=== PATIENT | female | born 1955 | race Caucasian/White ===

== ENCOUNTER 2021-11-24 17:25 | Emergency (ER) | payer MEDICARE, MEDICAID ==
[~2021-11-24] VITALS: Ht 170.2 cm; Wt 136.1 kg
[2021-11-24 18:30] LABS: BASOPHILS # (AUTO) 0.1 10^3/uL (0.0-0.1); BASOPHILS % (AUTO) 1 % (0-10); EOSINOPHILS # (AUTO) 0.1 10^3/uL (0.0-0.3); EOSINOPHILS % (AUTO) 1 % (0-10); HEMATOCRIT 43 % (35-52); HEMOGLOBIN 13.4 g/dL (11.5-16.0); LYMPHOCYTES # (AUTO) 4.4 10^3/uL (1.0-4.0); LYMPHOCYTES % (AUTO) 26 % (12-44); MEAN CORPUSCULAR HEMOGLOBIN 29 pg (25-34); MEAN CORPUSCULAR HGB CONC 31 g/dL (32-36); MEAN CORPUSCULAR VOLUME 92 fL (80-99); MEAN PLATELET VOLUME 11.1 fL (9.0-12.2); MONOCYTES # (AUTO) 1.1 10^3/uL (0.0-1.0); MONOCYTES % (AUTO) 6 % (0-12); NEUTROPHILS # (AUTO) 11.4 10^3/uL (1.8-7.8); NEUTROPHILS % (AUTO) 67 % (42-75); PLATELET COUNT 222 10^3/uL (130-400); WHITE BLOOD COUNT 17.1 10^3/uL (4.3-11.0)
--- NOTE | 2021-11-24 18:36 | Diagnostic Imaging Report ---
EXAMINATION: Chest 1 view. HISTORY: Dyspnea. COMPARISON: None available. FINDINGS: Heart size is mildly enlarged with prominence of the pulmonary vasculature. Mild interstitial opacities within the lung bases. No pleural effusion or pneumothorax. The osseous structures are intact. IMPRESSION: 1. Cardiomegaly with findings of pulmonary vascular congestion. 2. Mild interstitial opacities consistent with pulmonary edema, atypical infection or atelectasis. Dictated by: Dictated on workstation # [id number]
--- NOTE | 2021-11-24 18:38 | ED Respiratory ---
General Chief Complaint: Respiratory Problems Stated Complaint: HX COPD/SOB Nursing Triage Note: PT AMB TO [facility] 4 WITH COMPLAINT OF SOA. PT WEARS 3LNC ALL TIME FOR COPD. STATES SHE HAS HAD INCREASING SOA SINCE YESTERDAY. Source: patient History of Present Illness Date Seen by Provider: Nov 24, 2021 Time Seen by Provider: 18:05 Initial Comments PT ARRIVES VIA POV FROM HOME PT WITH COPD AND IS O2 DEPENDENT ON 4L/NC CONTINOUSLY PT STATES SHE HAS HAD A PRODUCTIVE COUGH AND INCREASED SHORTNESS OF BREATH THE LAST COUPLE OF DAYS PT DOES NOT KNOW IF SHE HAS HAD FEVER--HAS NOT CHECKED TEMP NO CHEST PAIN OR PAIN WITH BREATHING NO SWELLING IN LEGS/FEET PT WENT TO [facility] TODAY FOR "NURSE CHECK" TO GET PAIN MEDICATIONS REFILLED DID NOT MENTION THESE ISSUES THEN PT SMOKED 1 PPD, QUIT 5 YEARS AGO STATES HER NEIGHBOR THIS WEEK, WHO WAS A SMOKER, ARE ALL OF HER RELATIVES, AND PT HAS BEEN THERE ALOT THIS WEEK. [facility] Allergies and Home Medications Allergies Coded Allergies: metoclopramide (Verified Allergy, Unknown, 11/24/21) Past Wlamqll-Pzqeqz-Saarxd Hx Patient Social History Tobacco Use?: Yes Tobacco type used: Cigarettes Smoking Status: Former Smoker Use of E-Cig and/or Vaping dev: No Substance use?: No Alcohol Use?: No Pt feels they are or have been: No Immunizations Up To Date Influenza Vaccine Up-to-Date: Yes; Up-to-Date First/Initial COVID19 Vaccinat: 2020 Second COVID19 Vaccination Khanh: 2020 Physical Exam Vital Signs - First Documented 11/24/21 18:05 Temp 37.2 Pulse 81 Resp 20 B/P (MAP) 147/79 (101) Pulse Ox 97 O2 Delivery Room Air O2 Flow Rate 3.00 Capillary Refill : Less Than 3 Seconds Height: '" Weight: lbs. oz. kg; 46.00 BMI Method: Focused Exam Sepsis Stage: Sepsis Possible Source: Pulmonary Lactate Level 11/24/21 19:01: Lactic Acid Level 0.84 Time of Focused Exam: 19:00 Respiratory: Normal Breath Sounds, No Accessory Muscle Use, No Respiratory Distress Cardiovascular: Regular Rate, Rhythm, No Murmur Capillary Refill: Less Than 3 Seconds Skin: normal color, warm/dry Lactic Acid Level Laboratory Tests Test 11/24/21 19:01 Lactic Acid Level 0.84 MMOL/L (0.50-2.00) Within 3hrs of presentation: Admin fluids, Admin ABX, Blood cultures prior to ABX's, Focus exam, Lactate level Progress/Results/Core Measures Suspected Sepsis SIRS Temperature: Pulse: 81 Respiratory Rate: 20 Laboratory Tests 11/24/21 18:18: White Blood Count 17.1H Blood Pressure 147 /79 Mean: 101 11/24/21 19:01: Lactic Acid Level 0.84 Laboratory Tests 11/24/21 18:18: Creatinine 0.90, INR Comment 0.9, Platelet Count 222, Total Bilirubin 0.2 Results/Orders Lab Results Laboratory Tests Test 11/24/21 18:18 11/24/21 19:01 Range/Units White Blood Count 17.1 H 4.3-11.0 10^3/uL Red Blood Count 4.68 3.80-5.11 10^6/uL Hemoglobin 13.4 11.5-16.0 g/dL Hematocrit 43 35-52 % Mean Corpuscular Volume 92 80-99 fL Mean Corpuscular Hemoglobin 29 25-34 pg Mean Corpuscular Hemoglobin Concent 31 L 32-36 g/dL Red Cell Distribution Width 14.4 10.0-14.5 % Platelet Count 222 130-400 10^3/uL Mean Platelet Volume 11.1 9.0-12.2 fL Immature Granulocyte % (Auto) 1 % Neutrophils (%) (Auto) 67 42-75 % Lymphocytes (%) (Auto) 26 12-44 % Monocytes (%) (Auto) 6 0-12 % Eosinophils (%) (Auto) 1 0-10 % Basophils (%) (Auto) 1 0-10 % Neutrophils # (Auto) 11.4 H 1.8-7.8 10^3/uL Lymphocytes # (Auto) 4.4 H 1.0-4.0 10^3/uL Monocytes # (Auto) 1.1 H 0.0-1.0 10^3/uL Eosinophils # (Auto) 0.1 0.0-0.3 10^3/uL Basophils # (Auto) 0.1 0.0-0.1 10^3/uL Immature Granulocyte # (Auto) 0.1 0.0-0.1 10^3/uL Neutrophils % (Manual) 67 % Lymphocytes % (Manual) 24 % Monocytes % (Manual) 5 % Eosinophils % (Manual) 1 % Basophils % (Manual) 1 % Band Neutrophils 1 % Blood Morphology Comment NORMAL Erythrocyte Sedimentation Rate 14 0-30 MM/HR Prothrombin Time 12.9 12.2-14.7 SEC INR Comment 0.9 0.8-1.4 Activated Partial Thromboplast Time 28 24-35 SEC Sodium Level 140 135-145 MMOL/L Potassium Level 4.7 3.6-5.0 MMOL/L Chloride Level 104 98-107 MMOL/L Carbon Dioxide Level 23 21-32 MMOL/L Anion Gap 13 5-14 MMOL/L Blood Urea Nitrogen 17 7-18 MG/DL Creatinine 0.90 0.60-1.30 MG/DL Estimat Glomerular Filtration Rate 71 BUN/Creatinine Ratio 19 Glucose Level 93 70-105 MG/DL Calcium Level 9.4 8.5-10.1 MG/DL Corrected Calcium 9.4 8.5-10.1 MG/DL Magnesium Level 2.0 1.6-2.4 MG/DL Total Bilirubin 0.2 0.1-1.0 MG/DL Aspartate Amino Transf (AST/SGOT) 22 5-34 U/L Alanine Aminotransferase (ALT/SGPT) 20 0-55 U/L Alkaline Phosphatase 124 40-136 U/L Myoglobin 61.7 10.0-92.0 NG/ML Troponin I < 0.028 <0.028 NG/ML C-Reactive Protein High Sensitivity 2.77 H 0.00-0.50 MG/DL B-Type Natriuretic Peptide 73.1 <100.0 PG/ML Total Protein 7.1 6.4-8.2 GM/DL Albumin 4.0 3.2-4.5 GM/DL Influenza Type A (RT-PCR) Not Detected Not Detecte Influenza Type B (RT-PCR) Not Detected Not Detecte SARS-CoV-2 RNA (RT-PCR) Not Detected Not Detecte Lactic Acid Level 0.84 0.50-2.00 MMOL/L My Orders Orders - CECY MORALES DO Ed Iv/Invasive Line Start (11/24/21 18:05) Ekg Tracing (11/24/21 18:05) O2 (11/24/21 18:05) Monitor-Rhythm Ecg Trace Only (11/24/21 18:05) Chest 1 View, Ap/Pa Only (11/24/21 18:05) Bnp Kady (11/24/21 18:05) Cbc With Automated Diff (11/24/21 18:05) Comprehensive Metabolic Panel (11/24/21 18:05) Hs C Reactive Protein (11/24/21 18:05) Lactic Acid Analyzer (11/24/21 18:05) Magnesium (11/24/21 18:05) Protime With Inr (11/24/21 18:05) Partial Thromboplastin Time (11/24/21 18:05) Erythrocyte Sedimentation Rate (11/24/21 18:05) Myoglobin Serum (11/24/21 18:05) Troponin I [place] (11/24/21 18:05) Covid 19 Inhouse Test (11/24/21 18:05) Influenza A And B By Pcr (11/24/21 18:05) Isolation Central Supply Req (11/24/21 18:05) Manual Differential (11/24/21 18:18) Blood Culture (11/24/21 18:36) Sputum Culture (11/24/21 18:36) Urinalysis (11/24/21 18:36) Urine Culture (11/24/21 18:36) Vital Signs Adult Sepsis Patie Q15M (11/24/21 18:36) Remove Rings In Anticipation O (11/24/21 18:36) Procalcitonin (Pct) (11/24/21 18:36) Ed Iv/Invasive Line Start (11/24/21 19:11) Lactated Ringers (Lr 1000 Ml Iv Solution (11/24/21 19:15) Ceftriaxone 1 Gm Pre-Mix (Rocephin 1 Gm (11/24/21 19:15) Azithromycin Injection (Zithromax Inject (11/24/21 19:15) Methylprednisolone Sod Succ (Solu-Medrol (11/24/21 19:11) Medications Given in ED Current Medications Medications Dose Ordered Sig/Vianca Route Start Time Stop Time Status Last Admin Dose Admin Azithromycin 500 mg/Sodium Chloride 255 ml @ 250 mls/hr ONCE ONCE IV 11/24/21 19:15 11/24/21 20:16 11/24/21 19:28 250 MLS/HR Ceftriaxone Sodium/Dextrose 50 ml @ 100 mls/hr ONCE ONCE IV 11/24/21 19:15 11/24/21 19:44 11/24/21 19:26 100 MLS/HR Lactated Ringer's 1,000 ml @ 0 mls/hr Q0M ONCE IV 11/24/21 19:15 11/24/21 19:16 DC 11/24/21 19:26 0 MLS/HR Vital Signs/I&O 11/24/21 11/24/21 18:05 18:05 Temp 37.2 Pulse 81 Resp 20 B/P (MAP) 147/79 (101) Pulse Ox 97 O2 Delivery Room Air Nasal Cannula O2 Flow Rate 3.00 Capillary Refill : Less Than 3 Seconds Blood Pressure Mean: 101 Progress Note : Progress Note NO COUGH NO DYSPNEA NO HYPOXIA NO FEVER NORMAL VITALS PT DECLINES ADMIT Diagnostic Imaging Comments CXR--PER RADIOLOGIST REPORT AT 1838 FINDINGS: Heart size is mildly enlarged with prominence of the pulmonary vasculature. Mild interstitial opacities within the lung bases. No pleural effusion or pneumothorax. The osseous structures are intact. IMPRESSION: 1. Cardiomegaly with findings of pulmonary vascular congestion. 2. Mild interstitial opacities consistent with pulmonary edema, atypical infection or atelectasis. Departure Impression Primary Impression: Pneumonia Additional Impression: COPD (chronic obstructive pulmonary disease) Disposition: HOME, SELF-CARE Condition: Stable Departure-Patient Inst. Decision time for Depature: 19:30 Referrals: [facility] (PCP) Primary Care Physician BERENICE ALEJANDRE DO (Family) Primary Care Physician Patient Instructions: Pneumonia, Adult ED, Chronic Obstructive Pulmonary Disease (COPD), Including Emphysema Add. Discharge Instructions: LOTS OF CLEAR LIQUIDS TYLENOL AND MOTRIN NEEDED FOR PAIN OR FEVER USE YOUR HOME INHALER/NEBULIZER PRESCRIBED FOLLOW UP WITH [facility] IN 3-4 DAYS FOR FURTHER CARE, RETURN TO ER IF WORSE All discharge instructions reviewed with patient and/or family. Voiced understanding. Scripts Guaifenesin/Dextromethorphan (Mucinex Dm ER 1,200-60 mg Tab) 1 Each Tbmp.12hr 1 EACH PO BID, #20 EA Prov: CECY MORALES DO 11/24/21 Benzonatate (TESSALON PERLES) 100 Mg Capsule 200 MG PO TID, #50 CAP Prov: ANDREW,CECY K 3/25/22 Methylprednisolone (Medrol) 4 Mg Tab.ds.pk 4 MG PO UD for 6 Days, #21 PKG PER DOSE PACK INSTRUCTIONS Prov: CECY MORALES DO 11/24/21 Azithromycin (Zithromax) 500 Mg Tablet 500 MG PO DAILY for 5 Days, #5 TAB Prov: CECY MORALES DO 11/24/21 Cefdinir (Cefdinir) 300 Mg Capsule 300 MG PO BID, #20 CAP Prov: CECY MORALES DO 11/24/21 CECY MORALSE DO Nov 24, 2021 18:38
[2021-11-24 18:47] LABS: INR 0.9 (0.8-1.4); PROTHROMBIN TIME PATIENT 12.9 SEC (12.2-14.7)
[2021-11-24 19:09] LABS: ALANINE AMINOTRANSFERASE 20 U/L (0-55); ALKALINE PHOSPHATASE 124 U/L (40-136); BAND NEUTROPHILS 1 %; BASOPHILS % (MANUAL) 1 %; BILIRUBIN,TOTAL 0.2 MG/DL (0.1-1.0); BUN/CREATININE RATIO 19; CALCIUM 9.4 MG/DL (8.5-10.1); CARBON DIOXIDE 23 MMOL/L (21-32); CHLORIDE 104 MMOL/L (98-107); EOSINOPHILS % (MANUAL) 1 %; GFR ESTIMATED 71; GLUCOSE 93 MG/DL (70-105); LYMPHOCYTES % (MANUAL) 24 %; MONOCYTES % (MANUAL) 5 %; NEUTROPHILS % (MANUAL) 67 %; POTASSIUM 4.7 MMOL/L (3.6-5.0); RBC MORPH NORMAL; SODIUM 140 MMOL/L (135-145); TOTAL PROTEIN 7.1 GM/DL (6.4-8.2)
[2021-11-24 19:10] LABS: ERYTHROCYTE SEDIMENTATION RATE 14 MM/HR (0-30)
[2021-11-24] MEDS ORDERED: methylPREDNISolone 125 MG (Solu-MEDROL) VIAL IV STA (19:11)
[2021-11-24] MEDS ORDERED: cefTRIAXone 1 GM PRE-MIX 50 ML IV ONE (19:15)
[2021-11-24] MEDS ORDERED: LACTATED RINGERS 1,000 ML IV ONE (19:15)
[2021-11-24] MEDS ORDERED: AZITHROMYCIN INJECTION 500 MG in NS (IVPB) 250 ML IV ONE (19:15)
[2021-11-24] MEDS ORDERED: METH4TAB PO (19:35)
[2021-11-24] MEDS ORDERED: GUAI1TBM19 PO (19:35)
[2021-11-24] MEDS ORDERED: BENZ100C18 PO (19:35)
[2021-11-24] MEDS ORDERED: CEFD300C3 PO (19:35)
[2021-11-24] MEDS ORDERED: AZIT500T PO (19:35)
[2021-11-24 19:58] VITALS: BP 139/77
== END 2021-11-24 20:03 | disposition home or self-care (01) ==
LOC: EDUNIT# 17:25 → ER 17:28
DX: J18.9 Pneumonia, unspecified organism (principal); J44.0 Chronic obstructive pulmonary disease with (acute) lower respiratory infection; Z87.891 Personal history of nicotine dependence; Z99.81 Dependence on supplemental oxygen; Z20.822 Contact with and (suspected) exposure to COVID-19
CPT/HCPCS: 36415; 71045; 80053; 83605; 83735; 83874; 83880; 84145; 84484; 85007; 85027; 85610; 85652; 85730; 86141; 87040; 87070; 87205; 87636; 93005; 93041

== ENCOUNTER → 2022-03-12 | Outpatient (CLI) | payer MEDICARE, MEDICAID ==
[~2022-03-12] MED LIST: ACHD5005 PO; ARIP5TAB59 PO; ATOR40TA70 PO; AZIT500T PO; BENZ100C18 PO; CEFD300C3 PO; CITA40TA13 PO; FLUT1BLS15 IH; GUAI1TBM19 PO; IPRA3AMP31 IH; LINA290C PO; MELA1TAB20 PO; METH4TAB PO; RT-ALBUINH INH; TRAZ-227 PO; ZOLP1.754 SL; ZOLP6.2538 PO
== END ==
LOC: CARD 09:53
PROVIDERS: ATTEND Pediatrics
DX: R60.0 Localized edema (principal)
CPT/HCPCS: 93306

== ENCOUNTER 2022-03-14 05:42 | Outpatient (CLI) | payer MEDICARE, MEDICAID ==
[~2022-03-14] VITALS: Ht 170.2 cm; Wt 151.5 kg
[~2022-03-14 05:42] MED LIST changes: -ACHD5005 PO; -ARIP5TAB59 PO; -ATOR40TA70 PO; -CITA40TA13 PO; -FLUT1BLS15 IH; -IPRA3AMP31 IH; -LINA290C PO; -MELA1TAB20 PO; -RT-ALBUINH INH; -TRAZ-227 PO; -ZOLP1.754 SL; -ZOLP6.2538 PO
[2022-03-14] MEDS ORDERED: ATOR40TA70 PO (14:17)
[2022-03-14] MEDS ORDERED: TRAZ-227 PO (14:17)
[2022-03-14] MEDS ORDERED: ZOLP1.754 SL (14:17)
[2022-03-14] MEDS ORDERED: CITA40TA13 PO (14:17)
[2022-03-14] MEDS ORDERED: RT-ALBUINH INH (14:17)
[2022-03-14] MEDS ORDERED: IPRA3AMP31 IH (14:17)
[2022-03-14] MEDS ORDERED: MELA1TAB20 PO (14:17)
[2022-03-14] MEDS ORDERED: FLUT1BLS15 IH (14:17)
[2022-03-14] MEDS ORDERED: ARIP5TAB59 PO (14:17)
[2022-03-14] MEDS ORDERED: LINA290C PO (14:17)
[2022-03-14] MEDS ORDERED: ZOLP6.2538 PO (14:17)
[2022-03-14] MEDS ORDERED: ACHD5005 PO (14:18)
== END 2022-03-14 14:22 | disposition home or self-care (01) ==
LOC: PREOP 05:42
PROVIDERS: ATTEND Surgery
DX: Z01.818 Encounter for other preprocedural examination (principal)

== ENCOUNTER 2022-03-27 07:57 | Day surgery (SDC) | payer MEDICARE, MEDICAID ==
[~2022-03-27] VITALS: Ht 170 cm; Wt 151.5 kg
[~2022-03-27 07:57] MED LIST changes: +ACHD5005 PO; +ARIP5TAB59 PO; +ATOR40TA70 PO; +CITA40TA13 PO; +FLUT1BLS15 IH; +IPRA3AMP31 IH; +LINA290C PO; +MELA1TAB20 PO; +RT-ALBUINH INH; +TRAZ-227 PO; +ZOLP1.754 SL; +ZOLP6.2538 PO
[2022-03-27] MEDS ORDERED: LACTATED RINGERS 1,000 ML IV STA (08:05)
[2022-03-27] MEDS ORDERED: LACTATED RINGERS 1,000 ML IV ONE (08:18)
[2022-03-27 08:20] VITALS: BP 173/83
[2022-03-27] MEDS ORDERED: PROPOFOL INJECTION 50 ML IV ONE (09:44)
[2022-03-27] MEDS ORDERED: KETAMINE 50 MG/5 ML SYRINGE ONE (09:44)
[2022-03-27] MEDS ORDERED: MIDAZOLAM 2 MG/2 ML (VERSED) VIAL ONE (09:44)
[2022-03-27 10:30] VITALS: BP 117/56
--- NOTE | 2022-03-27 10:38 | Discharge Inst-Simple/Standard ---
Discharge Inst-Standard Patient Instructions/Follow Up Plan of Care/Instructions/FU: 5 years Edie Any issues before that be seen at that time. Activity as Tolerated: Yes Discharge Diet: Regular Diet CHARAN GUARDADO DO Mar 27, 2022 10:38
--- NOTE | 2022-03-27 10:42 | Progress Note-Post Operative ---
Post-Operative Progess Note Surgeon (s)/County Commissioner (s) Surgeon CHARAN GUARDADO DO County Commissioner: na Pre-Operative Diagnosis hx colon cancer Post-Operative Diagnosis normal colon Procedure & Operative Findings Date of Procedure 03/27/22 Procedure Performed/Findings colonoscopy Anesthesia Type per oil field laborer Estimated Blood Loss Estimated blood loss (mL): none Specimens/Packing Specimens Removed na CHARAN GUARDADO DO Mar 27, 2022 10:42
[2022-03-27 11:00] VITALS: BP 130/70
[2022-03-27 11:05] VITALS: BP 130/70
--- NOTE | 2022-03-27 12:24 | Anesthesia-General Post-Op ---
MAC Patient Condition Mental Status/LOC: Same as Preop Cardiovascular: Satisfactory Nausea/Vomiting: Absent Respiratory: Satisfactory Pain: Controlled Complications: Absent Post Op Complications Complications None Follow Up Care/Instructions Patient Instructions None needed. Anesthesiology Discharge Order Discharge Order Patient is doing well, no complaints, stable vital signs, no apparent adverse anesthesia problems. No complications reported per nursing. FAREED ANDINO CRNA Mar 27, 2022 12:24
--- NOTE | 2022-03-27 17:16 | OPERATIVE REPORT ---
DATE OF SERVICE: 03/27/2022 PREOPERATIVE DIAGNOSIS: History of colon cancer. POSTOPERATIVE DIAGNOSIS: Normal colon. PROCEDURE: Colonoscopy. ANESTHESIA: Per SUPERVISOR SHAVING AND SPLITTING. ESTIMATED BLOOD LOSS: None. COMPLICATIONS: None. INDICATIONS: The patient is a 66-year-old female needing colonoscopy due to history of colon cancer. She understands risks and benefits and wishes to proceed. Consent was signed in the chart. DESCRIPTION OF PROCEDURE: The patient was taken to the endoscopy suite, placed in left lateral recumbent position. Timeout was performed. Digital rectal exam was performed. No palpable polyps, masses or ulcerations. Scope was inserted in the rectum and advanced all the way to cecum with minimal difficulty. Prep was adequate with irrigation and suction. Scope was then slowly retracted back. No polyps, masses or ulcerations visualized within the cecum, ascending, transverse, descending and sigmoid colon. Once in the rectum, scope was retroflexed noting no other pathology. Scope was returned to its normal position, slowly withdrawn until completely removed. RECOMMENDATIONS: The patient will have repeat colonoscopy in five years. Any issues before that be seen at that time and consider reevaluation. Job ID: [id number] DocumentID: [id number] Dictated Date: 03/27/2022 10:42:20 Crop Nutrition Scientist Date: 03/27/2022 17:16:20 Dictated By: DO YAMILKA MANCUSO
== END 2022-03-27 11:05 | disposition home or self-care (01) ==
LOC: ENDO 07:57
PROVIDERS: ATTEND Surgery
DX: Z12.11 Encounter for screening for malignant neoplasm of colon (principal); Z85.038 Personal history of other malignant neoplasm of large intestine; E66.01 Morbid (severe) obesity due to excess calories; Z68.43 Body mass index [BMI] 50.0-59.9, adult; Z87.891 Personal history of nicotine dependence; Z88.8 Allergy status to other drugs, medicaments and biological substances; G47.33 Obstructive sleep apnea (adult) (pediatric); Z79.82 Long term (current) use of aspirin

== ENCOUNTER → 2022-09-07 | Outpatient (CLI) | payer MEDICARE, MEDICAID | LOC: CARD 10:16 | PROVIDERS: ATTEND Internal Medicine Critical Care Medicine | DX: I51.7 Cardiomegaly (principal); I35.8 Other nonrheumatic aortic valve disorders; I31.39 Other pericardial effusion (noninflammatory); I27.29 Other secondary pulmonary hypertension; G47.33 Obstructive sleep apnea (adult) (pediatric); J44.9 Chronic obstructive pulmonary disease, unspecified; J96.12 Chronic respiratory failure with hypercapnia | CPT/HCPCS: 93306 ==

== ENCOUNTER → 2022-09-11 | Outpatient (CLI) | payer MEDICARE, MEDICAID ==
[~2022-09-11] MED LIST changes: +RT-ALBUTEROL SULF 2.5 MG/3 ML PRE-MIX VIAL INH ONE
== END ==
LOC: RT 09:57
PROVIDERS: ATTEND Internal Medicine Critical Care Medicine
DX: J44.9 Chronic obstructive pulmonary disease, unspecified (principal); G47.33 Obstructive sleep apnea (adult) (pediatric); J96.12 Chronic respiratory failure with hypercapnia; I27.29 Other secondary pulmonary hypertension
CPT/HCPCS: 94060; 94726; 94729

== ENCOUNTER 2023-01-18 19:24 | Outpatient (CLI) | payer MEDICARE, MEDICAID ==
[~2023-01-18 19:24] MED LIST changes: -MELA1TAB20 PO; +MELA1TAB72 PO; -RT-ALBUTEROL SULF 2.5 MG/3 ML PRE-MIX VIAL INH ONE
== END 2023-01-19 05:35 | disposition home or self-care (01) ==
LOC: SLEEP 19:24
PROVIDERS: ATTEND Internal Medicine Critical Care Medicine
DX: G47.33 Obstructive sleep apnea (adult) (pediatric) (principal)
CPT/HCPCS: 95811

== ENCOUNTER → 2023-05-08 | Outpatient (CLI) | payer MEDICARE, MEDICAID | LOC: LAB 11:54 | PROVIDERS: ATTEND Internal Medicine Critical Care Medicine | DX: J44.9 Chronic obstructive pulmonary disease, unspecified (principal); I27.29 Other secondary pulmonary hypertension; J96.12 Chronic respiratory failure with hypercapnia; G47.33 Obstructive sleep apnea (adult) (pediatric) | CPT/HCPCS: 82805 ==